=== PATIENT | female | born 1985 | race African-American/Black ===

== ENCOUNTER 2016-12-02 02:28 | Emergency (ER) | payer BC | END 2016-12-02 03:00 | disposition home or self-care (01) | LOC: SCSER 02:28 | DX: J02.9 Acute pharyngitis, unspecified (principal); J45.990 Exercise induced bronchospasm | CPT/HCPCS: 99282 ==

== ENCOUNTER 2018-12-17 00:16 | Emergency (ER) | payer OTHER ==
[2018-12-17 00:37] LABS: #Basophils 0.1 thou/uL (0.0-0.2); #Eosinphils 0.1 thou/uL (0.0-0.7); #Lymphocytes 2.9 thou/uL (1.20-3.40); #Monocytes 0.5 thou/uL (0.11-0.59); #Neutrophils 2.5 thou/uL (1.40-6.50); %Basophils 1.1 % (0.0-1.0); %Eosinophils 2.3 % (0.0-10.0); %Lymphocytes 47.2 % (21.0-51.0); %Monocytes 7.4 % (0.0-10.0); Hemoglobin 12.5 g/dL (12.0-16.0); Mean Corpuscular HGB CONC 32.9 g/dL (32.0-36.0); Mean Corpuscular Hemoglobin 27.8 pg (27.0-31.0); Mean Corpuscular Volume 84.3 fL (78.0-98.0); Mean Platelet Volume 7.2 fL (7.4-10.4); Platelet Count 400 thou/uL (130-400); RBC Distribution Width 13.8 % (11.5-14.5); Red Blood Cell (RBC) Count 4.51 mill/uL (4.20-5.40); White Blood Cell (WBC) Count 6.1 thou/uL (4.8-10.8)
[2018-12-17 00:56] LABS: Acetaminophen Less than 6.0 mcg/mL (10.0-30.0); Alcohol Less than 10 mg/dL (Less than 10); Salicylate Less than 8.0 mg/dL (15.0-30.0)
[2018-12-17 00:58] LABS: ALT (SGPT) 16 U/L (8-55); AST (SGOT) 19 U/L (5-34); Alkaline Phosphatase 45 U/L (40-110); Anion Gap 12 mmol/L (10-20); BUN (Urea Nitrogen) 9 mg/dL (7.0-18.7); Bilirubin, Total 0.3 mg/dL (0.2-1.2); Calc. Creatinine Clearance 0 mL/min (70-130); Calcium 9.1 mg/dL (7.8-10.44); Carbon Dioxide 27 mmol/L (22-29); Chloride 103 mmol/L (98-107); Estimated GFR-MDRD Greater than 90; Globulin 3.2 g/dL (2.4-3.5); Glucose 95 mg/dL (70-105); Protein, Total 7.2 g/dL (6.0-8.3); Sodium 139 mmol/L (136-145)
[2018-12-17] MEDS ORDERED: Potassium Chloride 20 MEQ TAB ONE (01:28)
[2018-12-17 02:25] LABS: Pregnancy Test - Urine (BHCG) Negative (Negative); Pregu Control Background? CLEAR/WHITE (CLR/WHITE); Pregu Control Bar Appear? YES (CONTROL BAR); Specific Gravity 1.017 (1.002-1.036)
[2018-12-17 02:54] LABS: Amphetamine Detected (NotDetected); Barbiturates Screen Not Detected (NotDetected); Benzodiazepine Screen Detected (NotDetected); Cocaine Metabolite Screen Not Detected (NotDetected); Medtox Control Line Valid? VALID (VALID); Medtox Reader # READER 4; Methadone Not Detected (NotDetected); Methamphetamine Not Detected (NotDetected); Opiate Screen Not Detected (NotDetected); Oxycodone Screen Not Detected (NotDetected); Phencyclidine (PCP) Not Detected (NotDetected); THC/Cannabinoid Screen Not Detected (NotDetected); Tricyclic Screen Not Detected (NotDetected)
== END 2018-12-17 11:48 ==
LOC: ERS 00:16
DX: T42.4X2A Poisoning by benzodiazepines, intentional self-harm, initial encounter (principal); T48.1X2A Poisoning by skeletal muscle relaxants [neuromuscular blocking agents], intentional self-harm, initial encounter; E87.6 Hypokalemia; I10 Essential (primary) hypertension; J45.909 Unspecified asthma, uncomplicated; G43.909 Migraine, unspecified, not intractable, without status migrainosus; Z79.51 Long term (current) use of inhaled steroids; Z79.899 Other long term (current) drug therapy
CPT/HCPCS: 80053; 80306; 80307; 81025; 84443; 85025; 93005; 96360; 96361

== ENCOUNTER 2021-02-07 20:29 | Inpatient (IN) | payer OTHER, SELFPAY ==
[2021-02-07 21:34] LABS: ALT (SGPT) 27 U/L (8-55); AST (SGOT) 37 U/L (5-34); Albumin 3.7 g/dL (3.5-5.0); Alkaline Phosphatase 59 U/L (40-110); Anion Gap 17 mmol/L (10-20); BUN (Urea Nitrogen) 12 mg/dL (7.0-18.7); Bilirubin, Total 1.4 mg/dL (0.2-1.2); Calc. Creatinine Clearance 0 mL/min (70-130); Calcium 9.5 mg/dL (7.8-10.44); Carbon Dioxide 22 mmol/L (22-29); Chloride 102 mmol/L (98-107); Globulin 3.6 g/dL (2.4-3.5); Glucose 114 mg/dL (70-105); Potassium 4.2 mmol/L (3.5-5.1); Protein, Total 7.3 g/dL (6.0-8.3); Sodium 137 mmol/L (136-145)
[2021-02-07 21:39] LABS: Hemoglobin 9.3 g/dL (12.0-16.0); Mean Corpuscular HGB CONC 29.8 g/dL (32.0-36.0); Mean Corpuscular Hemoglobin 20.6 pg (27.0-31.0); Mean Corpuscular Volume 69.1 fL (78.0-98.0); Red Blood Cell (RBC) Count 4.54 mill/uL (4.20-5.40); White Blood Cell (WBC) Count 7.9 thou/uL (4.8-10.8)
[2021-02-07 21:40] LABS: #Eosinphils 0.1 thou/uL (0.0-0.7); #Lymphocytes 3.1 thou/uL (1.20-3.40); #Monocytes 0.7 thou/uL (0.11-0.59); %Basophils 0.3 % (0.0-1.0); %Eosinophils 0.7 % (0.0-10.0); %Lymphocytes 39.5 % (21.0-51.0); %Monocytes 8.9 % (0.0-10.0); %Neutrophils 50.4 % (42.0-75.0); Anisocytosis MODERATE=16-30 cells (100X) (0-5/hpf); Elliptocytes SLIGHT = 2-5 cells (100X) (0-1/hpf); Hypochromia SLIGHT = 6-15 cells (100X) (0-5/hpf); MDiff Complete? YES; Mean Platelet Volume 9.9 fL (7.4-10.4); Platelet Count 418 thou/uL (130-400); RBC Distribution Width 18.9 % (11.5-14.5)
[2021-02-07 21:51] LABS: Bilirubin Negative (Negative); Blood, Urine Negative (Negative); Clarity Clear (Clear); Glucose, Urine (Dipstick) Normal (Negative); Ketone, Urine Negative (Negative); Leukocyte Negative Leu/uL (Negative); Nitrite Negative (Negative); Protein, Urine (Dipstick) 300 mg/dL (Neg-Trace); RBC/HPF 0-3 HPF (0-3); Specific Gravity, Urine 1.027 (1.002-1.036); Squamous Epithelial 0-3 HPF (0-3); Urobilinogen 3 mg/dL (Less than 2)
[2021-02-07 21:58] LABS: Bacteria/HPF 1+ HPF (None Seen); WBC/HPF 0-3 HPF (0-3)
[2021-02-07] MEDS ORDERED: Furosemide 40 MG/4 ML VIAL ONE (22:58)
[2021-02-07 23:08] LABS: Acetaminophen Less than 6.0 mcg/mL (10.0-30.0); Alcohol Less than 10 mg/dL (Less than 10); Salicylate Less than 8.0 mg/dL (15.0-30.0)
[2021-02-07 23:12] LABS: Amphetamine Detected (NotDetected); Barbiturates Screen Not Detected (NotDetected); Benzodiazepine Screen Detected (NotDetected); Cocaine Metabolite Screen Not Detected (NotDetected); Methadone Not Detected (NotDetected); Methamphetamine Detected (NotDetected); Opiate Screen Not Detected (NotDetected); Oxycodone Screen Not Detected (NotDetected); Phencyclidine (PCP) Not Detected (NotDetected); THC/Cannabinoid Screen Not Detected (NotDetected); Tricyclic Screen Not Detected (NotDetected)
[2021-02-08 00:28] LABS: SARS-CoV-2 NAA Rapid Test Not Detected (NotDetected)
[2021-02-08 01:24] LABS: Lactic Acid 2.8 mmol/L (0.5-2.2)
[2021-02-08] MEDS ORDERED: Ondansetron PF 4 MG/2 ML Vial IVP PRN (04:34)
[2021-02-08] MEDS ORDERED: Ondansetron ODT 4 MG TAB PO PRN (04:34)
[2021-02-08] MEDS ORDERED: Acetaminophen 650 MG Suppository PR PRN (04:34)
[2021-02-08] MEDS ORDERED: Furosemide 40 MG/4 ML VIAL ONE (05:35)
[2021-02-08] MEDS: Furosemide 40 MG/4 ML VIAL SLOW IVP SCH ×2 (05:44→15:30)
[2021-02-08] MEDS ORDERED: Ondansetron ODT 4 MG TAB ONE (05:45)
[2021-02-08 06:02] LABS: #Eosinphils 0.1 thou/uL (0.0-0.7); #Lymphocytes 2.5 thou/uL (1.20-3.40); #Monocytes 0.6 thou/uL (0.11-0.59); #Neutrophils 3.4 thou/uL (1.40-6.50); %Basophils 0.2 % (0.0-1.0); %Eosinophils 1.1 % (0.0-10.0); %Lymphocytes 38.3 % (21.0-51.0); %Monocytes 9.2 % (0.0-10.0); %Neutrophils 51.3 % (42.0-75.0); Anion Gap 18 mmol/L (10-20); BUN (Urea Nitrogen) 14 mg/dL (7.0-18.7); Calc. Creatinine Clearance 0 mL/min (70-130); Calcium 9.7 mg/dL (7.8-10.44); Carbon Dioxide 25 mmol/L (22-29); Chloride 103 mmol/L (98-107); Glucose 96 mg/dL (70-105); Hemoglobin 8.7 g/dL (12.0-16.0); Iron 19 ug/dL (50-170); Iron Binding Capacity, Total 483 mcg/dL (265-497); Magnesium 1.7 mg/dL (1.6-2.6); Mean Corpuscular HGB CONC 29.9 g/dL (32.0-36.0); Mean Corpuscular Hemoglobin 20.4 pg (27.0-31.0); Mean Corpuscular Volume 68.4 fL (78.0-98.0); Mean Platelet Volume 10.7 fL (7.4-10.4); Platelet Count 378 thou/uL (130-400); Potassium 4.5 mmol/L (3.5-5.1); RBC Distribution Width 18.9 % (11.5-14.5); Red Blood Cell (RBC) Count 4.24 mill/uL (4.20-5.40); Sodium 141 mmol/L (136-145); White Blood Cell (WBC) Count 6.6 thou/uL (4.8-10.8)
[2021-02-08 06:54] LABS: Lactic Acid 2.4 mmol/L (0.5-2.2)
[2021-02-08 06:59] LABS: Iron 17 ug/dL (50-170); Iron Binding Capacity, Total 510 mcg/dL (265-497)
[2021-02-08 07:19] LABS: Free T4 (Free Thyroxine) 1.25 ng/dL (0.70-1.48)
[2021-02-08] MEDS ORDERED: Iron Sucrose Complex 200 MG in Sodium Chloride 0.9% 100 ML IVPB SCH (09:15)
[2021-02-08] MEDS: Enoxaparin Sodium 40 MG/0.4 ML SYRINGE SC SCH (09:55)
[2021-02-08] MEDS ORDERED: Iron, Sodium Ferric Gluconate 250 MG in Sodium Chloride 0.9% 250 ML 250 ML IVPB SCH (10:00)
[2021-02-08] MEDS ORDERED: ALPRAZolam 1 MG TAB PO PRN ×2 (18:38)
[2021-02-08] MEDS ORDERED: traZODone HCl 50 MG TAB PO PRN (18:45)
[2021-02-09] MEDS: Acetaminophen 325 MG TAB PO PRN (02:52)
[2021-02-09] MEDS: Furosemide 40 MG/4 ML VIAL SLOW IVP SCH ×2 (05:23→15:38)
[2021-02-09 05:25] LABS: #Eosinphils 0.1 thou/uL (0.0-0.7); #Lymphocytes 2.2 thou/uL (1.20-3.40); #Monocytes 0.4 thou/uL (0.11-0.59); #Neutrophils 3.6 thou/uL (1.40-6.50); %Eosinophils 1.1 % (0.0-10.0); %Lymphocytes 34.9 % (21.0-51.0); %Monocytes 6.5 % (0.0-10.0); %Neutrophils 57.5 % (42.0-75.0); Hemoglobin 8.1 g/dL (12.0-16.0); Hypochromia SLIGHT = 6-15 cells (100X) (0-5/hpf); MDiff Complete? YES; Mean Corpuscular HGB CONC 29.9 g/dL (32.0-36.0); Mean Corpuscular Hemoglobin 20.3 pg (27.0-31.0); Mean Corpuscular Volume 67.9 fL (78.0-98.0); Mean Platelet Volume 9.3 fL (7.4-10.4); Microcytosis SLIGHT = 6-15 cells (100X) (0-5/hpf); Platelet Count 332 thou/uL (130-400); Platelet Morphology Comment Appears Adequate; RBC Distribution Width 18.2 % (11.5-14.5); Red Blood Cell (RBC) Count 3.99 mill/uL (4.20-5.40); White Blood Cell (WBC) Count 6.2 thou/uL (4.8-10.8)
[2021-02-09 05:26] LABS: Anion Gap 13 mmol/L (10-20); BUN (Urea Nitrogen) 12 mg/dL (7.0-18.7); Calc. Creatinine Clearance 132 mL/min (70-130); Calcium 8.9 mg/dL (7.8-10.44); Carbon Dioxide 30 mmol/L (22-29); Chloride 96 mmol/L (98-107); Glucose 121 mg/dL (70-105); Sodium 136 mmol/L (136-145)
[2021-02-09 05:32] LABS: Potassium 2.6 mmol/L (3.5-5.1)
[2021-02-09] MEDS ORDERED: Electrolyte Replacement Protocol 1 EACH FS PRN (05:55)
[2021-02-09] MEDS ORDERED: Magnesium 2 GM/50 ML 2 GM in Premix Bag 1 BAG IVPB SCH (06:15)
[2021-02-09] MEDS: Potassium Chloride 40 MEQ in Sodium Chloride 0.9% 250 ML 250 ML IVPB SCH ×2 (06:42→11:30)
[2021-02-09] MEDS: Mometasone 200 MCG/PUFF (1 INHALER) INH SCH ×2 (08:01→18:56)
[2021-02-09] MEDS ORDERED: Losartan/Hydrochlorothiazide 100 mg/25 mg Tablet PO SCH (09:00)
[2021-02-09] MEDS: Ferrous Sulfate 325 MG TAB PO SCH (09:13)
[2021-02-09] MEDS: lamoTRIgine 25 MG TAB PO SCH (09:13)
[2021-02-09] MEDS: Spironolactone 25 MG TAB PO SCH (09:13)
[2021-02-09] MEDS: Enoxaparin Sodium 40 MG/0.4 ML SYRINGE SC SCH (09:14)
[2021-02-09] MEDS: DULoxetine 60 MG CAP PO SCH (09:14)
[2021-02-09] MEDS: Aripiprazole 10 MG TAB PO SCH (09:14)
[2021-02-10 04:53] LABS: #Eosinphils 0.1 thou/uL (0.0-0.7); #Lymphocytes 1.9 thou/uL (1.20-3.40); #Monocytes 0.5 thou/uL (0.11-0.59); #Neutrophils 4.6 thou/uL (1.40-6.50); %Basophils 0.5 % (0.0-1.0); %Eosinophils 1.1 % (0.0-10.0); %Lymphocytes 27.2 % (21.0-51.0); %Monocytes 7.3 % (0.0-10.0); Hemoglobin 8.9 g/dL (12.0-16.0); Mean Corpuscular HGB CONC 30.5 g/dL (32.0-36.0); Mean Corpuscular Hemoglobin 20.6 pg (27.0-31.0); Mean Corpuscular Volume 67.4 fL (78.0-98.0); Mean Platelet Volume 9.8 fL (7.4-10.4); Platelet Count 395 thou/uL (130-400); RBC Distribution Width 18.6 % (11.5-14.5); Red Blood Cell (RBC) Count 4.34 mill/uL (4.20-5.40); White Blood Cell (WBC) Count 7.1 thou/uL (4.8-10.8)
[2021-02-10 05:15] LABS: Anion Gap 12 mmol/L (10-20); BUN (Urea Nitrogen) 10 mg/dL (7.0-18.7); Calc. Creatinine Clearance 144 mL/min (70-130); Calcium 9.1 mg/dL (7.8-10.44); Carbon Dioxide 27 mmol/L (22-29); Chloride 97 mmol/L (98-107); Glucose 115 mg/dL (70-105); Potassium 3.3 mmol/L (3.5-5.1); Sodium 133 mmol/L (136-145)
[2021-02-10] MEDS ORDERED: Potassium Chloride 20 MEQ TAB PO SCH (06:00)
[2021-02-10] MEDS: Furosemide 40 MG/4 ML VIAL SLOW IVP SCH ×2 (06:21→14:56)
[2021-02-10] MEDS: Mometasone 200 MCG/PUFF (1 INHALER) INH SCH ×2 (07:42→19:13)
[2021-02-10] MEDS ORDERED: Communication Order-Pharmacy FS SCH (11:00)
[2021-02-10] MEDS: Ferrous Sulfate 325 MG TAB PO SCH (12:06)
[2021-02-10] MEDS: Aripiprazole 10 MG TAB PO SCH (12:06)
[2021-02-10] MEDS: Enoxaparin Sodium 40 MG/0.4 ML SYRINGE SC SCH (12:07)
[2021-02-10] MEDS: DULoxetine 60 MG CAP PO SCH (12:07)
[2021-02-10] MEDS: lamoTRIgine 25 MG TAB PO SCH (12:07)
[2021-02-10] MEDS: Spironolactone 25 MG TAB PO SCH (12:08)
[2021-02-10] MEDS: Acetaminophen 325 MG TAB PO PRN (21:05)
[2021-02-11] MEDS: Sodium Chloride 0.9% 1,000 ML IV SCH ×2 (02:44→05:57)
[2021-02-11 05:24] LABS: Anion Gap 12 mmol/L (10-20); BUN (Urea Nitrogen) 15 mg/dL (7.0-18.7); Calc. Creatinine Clearance 119 mL/min (70-130); Calcium 9.1 mg/dL (7.8-10.44); Carbon Dioxide 29 mmol/L (22-29); Chloride 100 mmol/L (98-107); Glucose 103 mg/dL (70-105); Potassium 4.3 mmol/L (3.5-5.1); Sodium 137 mmol/L (136-145)
[2021-02-11] MEDS: Metolazone 2.5 MG TAB PO SCH (05:25)
[2021-02-11] MEDS: Aripiprazole 10 MG TAB PO SCH (05:25)
[2021-02-11] MEDS: Furosemide 40 MG/4 ML VIAL SLOW IVP SCH ×2 (05:25→13:33)
[2021-02-11] MEDS: lamoTRIgine 25 MG TAB PO SCH (05:26)
[2021-02-11] MEDS: Spironolactone 25 MG TAB PO SCH (05:26)
[2021-02-11] MEDS: Ferrous Sulfate 325 MG TAB PO SCH (05:26)
[2021-02-11] MEDS: DULoxetine 60 MG CAP PO SCH (05:26)
[2021-02-11 05:37] LABS: Band 3 % (5-11); Hemoglobin 8.9 g/dL (12.0-16.0); Hypochromia SLIGHT = 6-15 cells (100X) (0-5/hpf); Lymphocytes 17 % (21-51); MDiff Complete? YES; Mean Corpuscular HGB CONC 30.3 g/dL (32.0-36.0); Mean Corpuscular Hemoglobin 20.7 pg (27.0-31.0); Mean Corpuscular Volume 68.3 fL (78.0-98.0); Microcytosis MODERATE=15-30 cells (100X) (0-5/hpf); Monocytes 9 % (0-10); Neutrophil 71 % (42-75); Platelet Count 404 thou/uL (130-400); Platelet Morphology Comment Appears Increased; Polychromasia SLIGHT = 2-3 cells (100X) (0-2/hpf); RBC Distribution Width 18.8 % (11.5-14.5); Red Blood Cell (RBC) Count 4.28 mill/uL (4.20-5.40); White Blood Cell (WBC) Count 8.8 thou/uL (4.8-10.8)
[2021-02-11] MEDS ORDERED: Midazolam HCl 2 mg/2 ml Vial ONE (07:02)
[2021-02-11] MEDS ORDERED: Fentanyl 100 MCG/2 ML VIAL ONE (07:02)
[2021-02-11] MEDS ORDERED: Lidocaine 1% (PF) 30 ML VIAL ONE (07:03)
[2021-02-11] MEDS: Mometasone 200 MCG/PUFF (1 INHALER) INH SCH ×2 (07:23→19:20)
[2021-02-11] MEDS ORDERED: Heparin 10,000 UNITS/ 10 ML VIAL ONE (07:26)
[2021-02-11] MEDS ORDERED: Verapamil 5 MG/2 ML VIAL ONE (07:26)
[2021-02-11] MEDS ORDERED: Nitroglycerin 100MG/250ML BOT 250 ML ONE (07:26)
[2021-02-11] MEDS ORDERED: Acetaminophen/Codeine 30-300mg Tablet PO PRN ×2 (07:48)
[2021-02-11] MEDS ORDERED: Nitroglycerin 0.4 MG TAB (25 Tab Bottle) SL PRN (07:48)
[2021-02-11] MEDS ORDERED: Sodium Chloride 0.9% 200 ML IV PRN (07:48)
[2021-02-11] MEDS ORDERED: Sodium Chloride 0.9% 1,000 ML IV SCH (08:00)
[2021-02-11] MEDS ORDERED: Iopamidol 370 76% 100 ML VIAL ONE (08:47)
[2021-02-11] MEDS ORDERED: diphenhydrAMINE 25 MG in Sodium Chloride 0.9% 50 ML IVPB SCH (12:00)
[2021-02-12] MEDS: Furosemide 40 MG/4 ML VIAL SLOW IVP SCH ×2 (04:51→14:31)
[2021-02-12] MEDS: Mometasone 200 MCG/PUFF (1 INHALER) INH SCH ×2 (07:39→19:10)
[2021-02-12] MEDS: DULoxetine 60 MG CAP PO SCH (09:13)
[2021-02-12] MEDS: Metolazone 2.5 MG TAB PO SCH (09:13)
[2021-02-12] MEDS: Ferrous Sulfate 325 MG TAB PO SCH (09:14)
[2021-02-12] MEDS: lamoTRIgine 25 MG TAB PO SCH (09:14)
[2021-02-12] MEDS: Aripiprazole 10 MG TAB PO SCH (09:14)
[2021-02-12] MEDS: Spironolactone 25 MG TAB PO SCH (09:15)
[2021-02-13] MEDS: Furosemide 40 MG/4 ML VIAL SLOW IVP SCH ×3 (07:54→16:07)
[2021-02-13] MEDS: Mometasone 200 MCG/PUFF (1 INHALER) INH SCH ×2 (07:55→18:09)
[2021-02-13] MEDS: Acetaminophen 325 MG TAB PO PRN (09:15)
[2021-02-13] MEDS: Spironolactone 25 MG TAB PO SCH (09:15)
[2021-02-13] MEDS: Metolazone 2.5 MG TAB PO SCH (09:15)
[2021-02-13] MEDS: DULoxetine 60 MG CAP PO SCH (09:15)
[2021-02-13] MEDS: Ferrous Sulfate 325 MG TAB PO SCH (09:15)
[2021-02-13] MEDS: lamoTRIgine 25 MG TAB PO SCH (09:17)
[2021-02-13] MEDS: Aripiprazole 10 MG TAB PO SCH (09:17)
[2021-02-13] MEDS: Losartan 25 MG TAB PO SCH (09:28)
[2021-02-14] MEDS: Mometasone 200 MCG/PUFF (1 INHALER) INH SCH ×2 (06:57→19:39)
[2021-02-14] MEDS: Furosemide 40 MG/4 ML VIAL SLOW IVP SCH ×2 (06:59→16:53)
[2021-02-14 07:28] VITALS: BMI 38.0
[2021-02-14] MEDS: Losartan 25 MG TAB PO SCH (09:51)
[2021-02-14] MEDS: DULoxetine 60 MG CAP PO SCH (09:51)
[2021-02-14] MEDS: Ferrous Sulfate 325 MG TAB PO SCH (09:51)
[2021-02-14] MEDS: Spironolactone 25 MG TAB PO SCH (09:51)
[2021-02-14] MEDS: Metolazone 2.5 MG TAB PO SCH (09:51)
[2021-02-14] MEDS: Aripiprazole 10 MG TAB PO SCH (09:52)
[2021-02-14] MEDS: lamoTRIgine 25 MG TAB PO SCH (09:52)
[2021-02-14] MEDS: Sodium Chloride 0.9% 1,000 ML IV SCH ×2 (22:13→22:35)
[2021-02-15] MEDS: Furosemide 40 MG/4 ML VIAL SLOW IVP SCH ×2 (06:06→17:59)
[2021-02-15] MEDS: Aripiprazole 10 MG TAB PO SCH (09:30)
[2021-02-15] MEDS: Losartan 25 MG TAB PO SCH (09:31)
[2021-02-15] MEDS: lamoTRIgine 25 MG TAB PO SCH (09:31)
[2021-02-15] MEDS: Metolazone 2.5 MG TAB PO SCH (09:31)
[2021-02-15] MEDS: Ferrous Sulfate 325 MG TAB PO SCH (09:31)
[2021-02-15] MEDS: Spironolactone 25 MG TAB PO SCH (09:31)
[2021-02-15] MEDS: DULoxetine 60 MG CAP PO SCH (09:31)
[2021-02-15 15:21] LABS: SARS-CoV-2 PCR by NAA Not Detected (NotDetected)
[2021-02-15 18:02] VITALS: BP 96/57; TEMP 98.2
[2021-02-15] MEDS: Mometasone 200 MCG/PUFF (1 INHALER) INH SCH (18:51)
== END 2021-02-15 19:01 | disposition home or self-care (01) | DRG 917 ==
LOC: ERS 20:29 → ERHOLD 23:33 → 2NO 02-08 08:34
PROVIDERS: ADMIT Student in an Organized Health Care Education/Training Program; ATTEND Family Medicine
PROC: 4A023N7 Measurement of Cardiac Sampling and Pressure, Left Heart, Percutaneous Approach (ICD-10-PCS; principal; 2021-02-11)
PROC: B2111ZZ Fluoroscopy of Multiple Coronary Arteries using Low Osmolar Contrast (ICD-10-PCS; 2021-02-11)
PROC: B2151ZZ Fluoroscopy of Left Heart using Low Osmolar Contrast (ICD-10-PCS; 2021-02-11)
DX: T43.621A Poisoning by amphetamines, accidental (unintentional), initial encounter (principal); Z20.822 Contact with and (suspected) exposure to COVID-19; I50.23 Acute on chronic systolic (congestive) heart failure; E87.2 Acidosis; Z68.41 Body mass index [BMI] 40.0-44.9, adult; I42.9 Cardiomyopathy, unspecified; J45.990 Exercise induced bronchospasm; I10 Essential (primary) hypertension; F32.A Depression, unspecified; F41.9 Anxiety disorder, unspecified; G43.909 Migraine, unspecified, not intractable, without status migrainosus; F15.10 Other stimulant abuse, uncomplicated; D50.9 Iron deficiency anemia, unspecified; E03.9 Hypothyroidism, unspecified; D50.0 Iron deficiency anemia secondary to blood loss (chronic); E66.01 Morbid (severe) obesity due to excess calories; F17.210 Nicotine dependence, cigarettes, uncomplicated; I08.1 Rheumatic disorders of both mitral and tricuspid valves; F90.9 Attention-deficit hyperactivity disorder, unspecified type; I95.9 Hypotension, unspecified; E87.6 Hypokalemia; Z88.8 Allergy status to other drugs, medicaments and biological substances; Z79.899 Other long term (current) drug therapy; Z79.51 Long term (current) use of inhaled steroids; Z71.51 Drug abuse counseling and surveillance of drug abuser
CPT/HCPCS: 36415; 71045; 78451; 80048; 80053; 80306; 80307; 81003; 81015; 82550; 82607; 82728; 82746; 83540; 83550; 83605; 83735; 83880; 84439; 84443; 84481; 84484; 85025; 93005; 93306; 93458; 93798; 96374; 99152; A9500; J1200; J1644; J1650; J1940; J2001; J2250; J2405; J2916; J3010; J3475; J3480; J7050; Q0162; Q9967; U0002; U0003; U0005

== ENCOUNTER 2021-03-25 15:53 | Emergency (ER) | payer SELFPAY ==
[2021-03-25 16:43] LABS: #Eosinphils 0.1 thou/uL (0.0-0.7); #Lymphocytes 2.4 thou/uL (1.20-3.40); #Monocytes 0.5 thou/uL (0.11-0.59); #Neutrophils 5.9 thou/uL (1.40-6.50); %Basophils 0.3 % (0.0-1.0); %Eosinophils 1.3 % (0.0-10.0); %Lymphocytes 26.6 % (21.0-51.0); %Monocytes 5.9 % (0.0-10.0); %Neutrophils 65.9 % (42.0-75.0); Hemoglobin 11.5 g/dL (12.0-16.0); Mean Corpuscular HGB CONC 31.5 g/dL (32.0-36.0); Mean Corpuscular Hemoglobin 24.6 pg (27.0-31.0); Mean Corpuscular Volume 78.2 fL (78.0-98.0); Mean Platelet Volume 9.9 fL (7.4-10.4); Platelet Count 384 thou/uL (130-400); RBC Distribution Width 25.9 % (11.5-14.5); Red Blood Cell (RBC) Count 4.67 mill/uL (4.20-5.40); White Blood Cell (WBC) Count 8.9 thou/uL (4.8-10.8)
[2021-03-25 17:01] LABS: Anisocytosis MODERATE=16-30 cells (100X) (0-5/hpf); Elliptocytes SLIGHT = 2-5 cells (100X) (0-1/hpf); Hypochromia SLIGHT = 6-15 cells (100X) (0-5/hpf); MDiff Complete? YES; Ovalocytes SLIGHT = 2-5 cells (100X) (0-1/hpf); Platelet Morphology Comment Appears Adequate; Poikilocytosis SLIGHT = 6-15 cells (100X) (0-5/hpf); Polychromasia SLIGHT = 2-3 cells (100X) (0-2/hpf); Tear Drops SLIGHT = 2-5 cells (100X) (0-1/hpf)
[2021-03-25 17:06] LABS: ALT (SGPT) 26 U/L (8-55); AST (SGOT) 34 U/L (5-34); Alkaline Phosphatase 47 U/L (40-110); Anion Gap 22 mmol/L (10-20); BUN (Urea Nitrogen) 23 mg/dL (7.0-18.7); Bilirubin, Total 0.6 mg/dL (0.2-1.2); Calc. Creatinine Clearance 0 mL/min (70-130); Calcium 9.5 mg/dL (7.8-10.44); Carbon Dioxide 25 mmol/L (22-29); Chloride 93 mmol/L (98-107); Globulin 3.5 g/dL (2.4-3.5); Glucose 119 mg/dL (70-105); Protein, Total 7.5 g/dL (6.0-8.3); Sodium 137 mmol/L (136-145)
[2021-03-25 17:22] LABS: Potassium 2.6 mmol/L (3.5-5.1)
[2021-03-25] MEDS ORDERED: Potassium Chloride 20 MEQ TAB ONE (18:19)
[2021-03-25 19:19] LABS: Magnesium 1.7 mg/dL (1.6-2.6)
== END 2021-03-25 19:28 | disposition home or self-care (01) ==
LOC: ERS 15:53
DX: N17.9 Acute kidney failure, unspecified (principal); E87.6 Hypokalemia; I95.9 Hypotension, unspecified; I11.0 Hypertensive heart disease with heart failure; I50.9 Heart failure, unspecified; J45.909 Unspecified asthma, uncomplicated; G43.909 Migraine, unspecified, not intractable, without status migrainosus; G47.00 Insomnia, unspecified; Z79.899 Other long term (current) drug therapy
CPT/HCPCS: 36415; 71045; 80053; 83735; 83880; 84484; 85025; 93005

== ENCOUNTER 2021-07-10 09:43 | Emergency (ER) | payer BC ==
[2021-07-10] MEDS ORDERED: Boostrix 0.5 ML (Tdap) VIAL ONE (09:59)
[2021-07-10] MEDS ORDERED: Bupivacaine 0.25% 10 ML VIAL ONE (10:05)
== END 2021-07-10 11:18 | disposition home or self-care (01) ==
LOC: ERS 09:43
DX: S61.412A Laceration without foreign body of left hand, initial encounter (principal); I11.0 Hypertensive heart disease with heart failure; I50.9 Heart failure, unspecified; J45.909 Unspecified asthma, uncomplicated; G47.00 Insomnia, unspecified; W25.XXXA Contact with sharp glass, initial encounter; Z23 Encounter for immunization; Z79.899 Other long term (current) drug therapy
CPT/HCPCS: 12002; 90471; 90715; S0020

== ENCOUNTER 2023-05-03 12:33 | Inpatient (IN) | payer SELFPAY ==
[2023-05-03] MEDS ORDERED: Ipratropium/Albuterol 3 ML NEB ONE (14:19)
[2023-05-03 14:36] LABS: Influenza A by NAA Not Detected (NotDetected); Influenza B by NAA Not Detected (NotDetected); SARS-CoV-2 NAA Rapid Test Not Detected (NotDetected)
[2023-05-03 14:40] LABS: #Basophils Less than 0.03 10x3/uL (0.0-0.2); %Basophils 0.2 % (0.0-1.0); %Eosinophils 0.4 % (0.0-10.0); %Lymphocytes 9.7 % (21.0-51.0); %Monocytes 5.7 % (0.0-10.0); %Neutrophils 83.5 % (42.0-75.0); Hemoglobin 10.6 g/dL (12.0-16.0); Mean Corpuscular HGB CONC 32.1 g/dL (32.0-36.0); Mean Corpuscular Hemoglobin 23.7 pg (27.0-31.0); Mean Corpuscular Volume 73.8 fL (78.0-98.0); Platelet Count 417 10x3/uL (130-400); RBC Distribution Width 16.5 % (11.5-14.5); Red Blood Cell (RBC) Count 4.47 mill/uL (4.20-5.40)
[2023-05-03 15:00] LABS: ALT (SGPT) 17 U/L (8-55); AST (SGOT) 26 U/L (5-34); Albumin 4.2 g/dL (3.5-5.0); Alkaline Phosphatase 71 U/L (40-110); Anion Gap 16 mmol/L (10-20); BUN (Urea Nitrogen) 4 mg/dL (7.0-18.7); Bilirubin, Total 0.7 mg/dL (0.2-1.2); Calc. Creatinine Clearance 0 mL/min (70-130); Calcium 9.6 mg/dL (7.8-10.44); Carbon Dioxide 25 mmol/L (22-29); Chloride 101 mmol/L (98-107); Estimated GFR 82; Glucose 104 mg/dL (70-105); Protein, Total 8.2 g/dL (6.0-8.3); Sodium 138 mmol/L (136-145)
[2023-05-03 15:04] LABS: Troponin I 0.012 ng/mL (< 0.028)
[2023-05-03 15:12] LABS: Microcytosis SLIGHT = 6-15 cells HPF (0-5); Platelet Adequacy Comment Platelets Increased; Poikilocytosis SLIGHT = 6-15 cells HPF (0-5); Polychromasia SLIGHT = 2-3 cells HPF (0-2); Schistocytes SLIGHT = 2-5 cells HPF (0-1)
[2023-05-03] MEDS ORDERED: Acetaminophen 500 MG TAB ONE (15:13)
[2023-05-03] MEDS ORDERED: Albuterol 2.5 MG (3 mL) NEB ONE (15:19)
[2023-05-03] MEDS ORDERED: Sodium Chloride 0.9% 100 ML ONE (16:02)
[2023-05-03] MEDS ORDERED: Cefepime 2 GM VIAL ONE (16:02)
[2023-05-03] MEDS ORDERED: methylPREDNISolone Sod Succ/PF 125 MG/2 ML VIAL ONE (16:02)
[2023-05-03 16:31] LABS: Bacteria/HPF 1+ HPF (None Seen); Bilirubin Negative (Negative); Blood, Urine 3+ (Negative); CAUTI Indications for Culture Dysuria,urgency,freq; Clarity Clear (Clear); Glucose, Urine (Dipstick) Normal (Negative); Ketone, Urine Trace mg/dL (Negative); Leukocyte Negative Leu/uL (Negative); Nitrite Negative (Negative); Protein, Urine (Dipstick) 20 mg/dL (Neg-Trace); Specific Gravity, Urine 1.016 (1.002-1.036); Squamous Epithelial 0-3 HPF (0-3); Urobilinogen Normal mg/dL (Less than 2); WBC/HPF 0-3 HPF (0-3)
[2023-05-03 16:33] LABS: Urine Culture Reflex No No
[2023-05-03] MEDS ORDERED: Acetaminophen 325 MG TAB PO PRN (16:47)
[2023-05-03] MEDS ORDERED: HYDROcodone/Acetaminophen 5/325 mg Tablet PO PRN (16:47)
[2023-05-03] MEDS ORDERED: Ipratropium/Albuterol 3 ML NEB NEB PRN (16:50)
[2023-05-03 18:32] LABS: Lactic Acid 1.1 mmol/L (0.5-2.2)
[2023-05-03] MEDS: Furosemide 40 MG (4 mL) VIAL SLOW IVP SCH (19:35)
[2023-05-03] MEDS: Famotidine 20 MG TAB PO SCH (19:36)
[2023-05-03] MEDS: Doxycycline 100 MG CAP PO SCH (19:37)
[2023-05-03] MEDS: methylPREDNISolone Sod Succ 40 MG VIAL IVP SCH (19:40)
[2023-05-03] MEDS: Ipratropium/Albuterol 3 ML NEB NEB SCH (21:59)
[2023-05-04 00:05] VITALS: BMI 40.5
[2023-05-04 04:29] LABS: #Basophils Less than 0.03 10x3/uL (0.0-0.2); #Eosinphils Less than 0.03 10x3/uL (0.0-0.7); %Basophils 0.1 % (0.0-1.0); %Lymphocytes 4.9 % (21.0-51.0); %Monocytes 1.3 % (0.0-10.0); Hematocrit 32.3 % (36.0-47.0); Hemoglobin 9.9 g/dL (12.0-16.0); Mean Corpuscular HGB CONC 30.7 g/dL (32.0-36.0); Mean Corpuscular Hemoglobin 22.9 pg (27.0-31.0); Mean Corpuscular Volume 74.6 fL (78.0-98.0); Mean Platelet Volume 9.3 fL (7.4-10.4); Platelet Count 445 10x3/uL (130-400); RBC Distribution Width 16.9 % (11.5-14.5); Red Blood Cell (RBC) Count 4.33 mill/uL (4.20-5.40)
[2023-05-04 04:53] LABS: Microcytosis SLIGHT = 6-15 cells HPF (0-5); Platelet Adequacy Comment Platelets Normal; Polychromasia SLIGHT = 2-3 cells HPF (0-2)
[2023-05-04 05:01] LABS: Anion Gap 17 mmol/L (10-20); BUN (Urea Nitrogen) 7 mg/dL (7.0-18.7); Calc. Creatinine Clearance 122 mL/min (70-130); Calcium 8.8 mg/dL (7.8-10.44); Carbon Dioxide 23 mmol/L (22-29); Chloride 100 mmol/L (98-107); Estimated GFR 69; Glucose 280 mg/dL (70-105); Potassium 3.8 mmol/L (3.5-5.1); Sodium 136 mmol/L (136-145)
[2023-05-04] MEDS: Fluticasone Propionate Nasal Spray 16 gm Bottle NASAL SCH (08:12)
[2023-05-04] MEDS: Enoxaparin 40 MG (0.4 mL) SYRINGE SC SCH (08:15)
[2023-05-04] MEDS: Loratadine 10 MG TAB PO SCH (08:17)
[2023-05-04] MEDS: Furosemide 40 MG (4 mL) VIAL SLOW IVP SCH (08:19)
[2023-05-04 12:34] LABS: Amphetamine Detected (NotDetected); Barbiturates Screen Not Detected (NotDetected); Benzodiazepine Screen Not Detected (NotDetected); Cocaine Metabolite Screen Not Detected (NotDetected); Methadone Not Detected (NotDetected); Methamphetamine Detected (NotDetected); Opiate Screen Not Detected (NotDetected); Oxycodone Screen Not Detected (NotDetected); Phencyclidine (PCP) Not Detected (NotDetected); THC/Cannabinoid Screen Detected (NotDetected); Tricyclic Screen Not Detected (NotDetected)
[2023-05-05 09:19] VITALS: BP 114/67; TEMP 98.1
== END 2023-05-05 11:02 | disposition home or self-care (01) | DRG 202 ==
LOC: ERS 12:33 → 2SW 16:51 → OBSVTOIN 05-04 14:53
PROVIDERS: ADMIT Family Medicine; ATTEND Family Medicine
DX: J45.901 Unspecified asthma with (acute) exacerbation (principal); I50.22 Chronic systolic (congestive) heart failure; Z68.41 Body mass index [BMI] 40.0-44.9, adult; I25.5 Ischemic cardiomyopathy; E66.01 Morbid (severe) obesity due to excess calories; I11.0 Hypertensive heart disease with heart failure; F17.210 Nicotine dependence, cigarettes, uncomplicated; Z79.899 Other long term (current) drug therapy; Z79.51 Long term (current) use of inhaled steroids
CPT/HCPCS: 36415; 71045; 80048; 80053; 80306; 81001; 83605; 83880; 84484; 85025; 87040; 87086; 93005; 94640; 96365; 96366; 96372; 96375; 96376; G0378; J0692; J1650; J1940; J2920; J2930; J3490; J7611; J7620